=== PATIENT | male | born 1985 | race Hispanic/Latino ===

== ENCOUNTER → 2022-08-02 12:37 | Outpatient (CLI) | payer BC, SELFPAY ==
--- NOTE | 2022-08-02 12:39 | DI.RAD.S_ITS ---
PROCEDURE: XR KNEE LT 3V INDICATIONS: chronic knee pain TECHNIQUE: 3 views of the knee were acquired. COMPARISON: None. FINDINGS: Bones: No fractures or dislocations. No suspicious bony lesions. Mild tricompartmental osteoarthritis with osteophytosis. Soft tissues: No joint effusion. No suspicious soft tissue calcifications. IMPRESSION: Mild left knee tricompartmental osteoarthritis. Dictated by: Iraida Berger MD, PhD on 08/02/2022 at 14:42 Approved by: Iraida Berger MD, PhD on 08/02/2022 at 14:43
--- NOTE | 2022-08-02 12:39 | DI.RAD.S_ITS ---
PROCEDURE: XR KNEE RT 3V INDICATIONS: chronic knee pain TECHNIQUE: 3 views of the knee were acquired. COMPARISON: None. FINDINGS: Bones: No fractures or dislocations. No suspicious bony lesions. Mild tricompartmental osteoarthritis with marginal osteophytosis. Soft tissues: No joint effusion. No suspicious soft tissue calcifications. IMPRESSION: Mild right knee tricompartmental osteoarthritis. Dictated by: Iraida Berger MD, PhD on 08/02/2022 at 14:40 Approved by: Iraida Berger MD, PhD on 08/02/2022 at 14:42
== END ==
PROVIDERS: Referring Provider Nurse Practitioner Family; Visit Provider Nurse Practitioner Family
DX: M17.0 Bilateral primary osteoarthritis of knee (principal); M25.569 Pain in unspecified knee
CPT/HCPCS: 73562

== ENCOUNTER → 2023-04-29 15:06 | Outpatient (CLI) | payer BC, SELFPAY | PROVIDERS: Visit Provider Nurse Practitioner Family | DX: J06.9 Acute upper respiratory infection, unspecified (principal); B97.89 Other viral agents as the cause of diseases classified elsewhere | CPT/HCPCS: 87070 ==

== ENCOUNTER → 2024-07-19 13:25 | Outpatient (CLI) | payer OTHER, SELFPAY ==
[2024-07-19 19:24] LABS: Influenza A - CEPHEID Flu A NEGATIVE (NEGATIVE); Influenza B - CEPHEID Flu B NEGATIVE (NEGATIVE); Respiratory Syncytial Virus Negative (Negative)
[2024-07-19 19:28] LABS: COVID-19 CEPHEID 4-PLEX PCR Negative (Negative)
== END ==
PROVIDERS: Visit Provider Family Medicine
DX: J06.9 Acute upper respiratory infection, unspecified (principal); B97.89 Other viral agents as the cause of diseases classified elsewhere; S39.011A Strain of muscle, fascia and tendon of abdomen, initial encounter; R05.9 Cough, unspecified
CPT/HCPCS: 0241U

== ENCOUNTER → 2024-07-19 13:39 | Outpatient (CLI) | payer OTHER, SELFPAY ==
--- NOTE | 2024-07-19 13:40 | DI.RAD.S_ITS ---
PROCEDURE: XR CHEST 2V INDICATIONS: cough x 5 week TECHNIQUE: 2 views of the chest were acquired. COMPARISON: None. FINDINGS: Surgical changes and devices: None. Lungs and pleura: Lungs are clear. No pleural effusions or pneumothorax. Mediastinum: Mediastinal contours are normal. Heart size is normal. Bones and chest wall: No suspicious bony abnormalities. Soft tissues appear unremarkable. IMPRESSION: No acute cardiopulmonary abnormality is seen. Dictated by: Arnoldo Chisholm M.D. on 07/19/2024 at 21:57 Approved by: Arnoldo Chisholm M.D. on 07/19/2024 at 21:57
== END ==
PROVIDERS: PCP Family Medicine; Referring Provider Family Medicine; Visit Provider Family Medicine
DX: J06.9 Acute upper respiratory infection, unspecified (principal); R05.9 Cough, unspecified; I10 Essential (primary) hypertension; B97.89 Other viral agents as the cause of diseases classified elsewhere; S39.011A Strain of muscle, fascia and tendon of abdomen, initial encounter
CPT/HCPCS: 0241U; 71046

== ENCOUNTER → 2024-09-13 09:47 | Outpatient (CLI) | payer OTHER, SELFPAY ==
[2024-09-13 11:00] LABS: Hemoglobin A1C% w Est Avg Glu 5.3 % (4.0-6.0)
[2024-09-13 11:01] LABS: Alanine Aminotransferase 15 IU/L (<50); Albumin Globulin Ratio 1.3 (1.0-2.8); Alkaline Phosphatase 123 U/L (38-126); Aspartate Aminotransferase 27 IU/L (17-59); BUN Creatinine Ratio 16.1 (6-22); Bilirubin Total 0.5 mg/dL (0.2-1.3); Blood Urea Nitrogen 14 mg/dL (9-20); Calcium 8.9 mg/dL (8.4-10.2); Carbon Dioxide 24 mmol/L (22-32); Chloride 107 mmol/L (98-107); Cholesterol 181 mg/dL (140-199); Estimated Glomerular Filt Rate > 60 mL/min (>60); Glucose 105 mg/dL (70-99); HDL Cholesterol 57 mg/dL (40-60); HEMOLYSIS < 15 (0-50); LDL Cholesterol Calculated 112 mg/dL (<100); Potassium 4.5 mmol/L (3.4-5.1); Sodium 139 mmol/L (137-145); Triglycerides 61 mg/dL (35-150)
[2024-09-13 11:49] LABS: HIV 1 & 2 Ab/Ag 4th Gen Combo NEGATIVE (NEGATIVE); Hep C Virus Ab w/Reflex Quant NEGATIVE s/c (NEGATIVE)
== END ==
LOC: LAB 09:49
PROVIDERS: PCP Family Medicine; Referring Provider Family Medicine; Visit Provider Family Medicine
DX: Z11.4 Encounter for screening for human immunodeficiency virus [HIV] (principal); Z11.59 Encounter for screening for other viral diseases; E66.01 Morbid (severe) obesity due to excess calories; I10 Essential (primary) hypertension
CPT/HCPCS: 36415; 80053; 80061; 83036; 86803; 87389